=== PATIENT | male | born 1960 | race Caucasian/White ===

== ENCOUNTER 2020-08-15 12:24 | Emergency (ER) | payer MEDICAID | END 2020-08-15 14:33 | disposition left against medical advice (07) | LOC: ER 12:24 | DX: M79.671 Pain in right foot (principal); Z53.21 Procedure and treatment not carried out due to patient leaving prior to being seen by health care provider ==

== ENCOUNTER 2023-06-09 09:52 | Inpatient (IN) | payer MEDICARE, MEDICAID ==
[~2023-06-09] VITALS: Ht 175.3 cm; Wt 71.8 kg
[~2023-06-09 09:52] MED LIST: BECL40AE11 IN; CARV3.1240 PO; DAPA1TAB4 PO; MIRT-94 PO; RIVA20TA PO; SPIR25TA8 PO
[2023-06-09 12:44] VITALS: PULSE 101; RESP 21; O2SAT 92
[2023-06-09] MEDS ORDERED: FUROSEMIDE 40 MG/4 ML VIAL IV ONE (13:30)
[2023-06-09] MEDS ORDERED: ASPirin 325 MG TAB PO ONE (13:30)
[2023-06-09 13:40] LABS: Alanine Aminotransferase 29 U/L (7-40); Albumin 3.8 g/dL (3.2-4.8); Alkaline Phosphatase 87 U/L (46-116); Anion Gap 4 (5-15); Aspartate Aminotransferase 48 U/L (13-40); BUN/Creatinine Ratio 17.9 (10.0-20.0); Blood Urea Nitrogen 15 mg/dL (9-23); Calcium 9.1 mg/dL (8.5-10.1); Carbon Dioxide 31 mmol/L (20-30); Chloride 100 mmol/L (98-107); Glucose 97 mg/dL (74-106); Potassium 4.1 mmol/L (3.5-5.1); Sodium 135 mmol/L (136-145)
[2023-06-09 13:41] LABS: Bilirubin, Total 1.8 mg/dL (0.2-1.0); Total Protein 7.4 g/dL (5.7-8.2)
[2023-06-09 15:21] LABS: Urine Bacteria NONE SEEN /hpf (None Seen); Urine Blood Negative /uL (Negative); Urine Clarity Clear (Clear); Urine Color Yellow (Yellow); Urine Protein, UAD Negative (Negative); Urine Specific Gravity 1.011 (1.001-1.035); Urine WBC <1 /hpf (0 - 3)
[2023-06-09] MEDS ORDERED: DOCUSATE SOD 100 MG CAP PO PRN (15:30)
[2023-06-09] MEDS ORDERED: MORPHINE SULFATE INJ 2 MG/ml SYRG IV PRN (15:30)
[2023-06-09] MEDS ORDERED: ONDANSETRON HCL 4 MG/2 ML VIAL IV PRN (15:30)
[2023-06-09] MEDS ORDERED: NITROGLYCERIN 0.4 MG SL TAB SL PRN (15:30)
[2023-06-09] MEDS ORDERED: ACETAMINOPHEN 325 MG TAB PO PRN (15:30)
[2023-06-09] MEDS ORDERED: APIX5TAB PO (15:40)
[2023-06-09] MEDS ORDERED: LISI2.5T47 PO (15:40)
[2023-06-09] MEDS ORDERED: FURO40TA4 PO (15:40)
[2023-06-09] MEDS ORDERED: AMIO200T13 PO (15:40)
[2023-06-09] MEDS ORDERED: IPRATROPIUM BROM 0.5 MG/2.5ML INH SOL NEB PRN (15:45)
[2023-06-09] MEDS ORDERED: ALBUTEROL SULF 2.5 MG/0.5ML(0.5%) NEB SOLN NEB PRN (15:45)
[2023-06-09 16:31] VITALS: BP 116/73; PULSE 91; RESP 19; O2SAT 95
[2023-06-09 16:44] LABS: Basophils # (auto) 0 10 ^3/uL (0-0.2); Basophils % (auto) 0.7 % (0.0-2.0); Eosinophils # (auto) 0.2 10 ^3/uL (0-0.8); Eosinophils % (auto) 2.6 % (0.0-7.0); Hemoglobin 13.5 g/dL (13.5-17.5); Lymphocytes # (auto) 0.9 10 ^3/uL (0.4-5.4); Lymphocytes % (auto) 13.1 % (10.0-50.0); Mean Corpuscular Hemoglobin 36.3 pg (28.0-32.0); Mean Corpuscular Hgb Conc. 33.6 g/dL (32.0-36.0); Mean Corpuscular Volume 107.9 fL (80.0-100.0); Monocytes # (auto) 0.8 10 ^3/uL (0-1.3); Monocytes % (auto) 10.9 % (0.0-12.0); Neutrophils # (auto) 5.1 10 ^3/uL (1.6-8.6); Neutrophils % (auto) 72.7 % (37.0-80.0); Nucleated Red Blood Cells % 0.1 %; Red Blood Cells 3.71 10^6/uL (4.5-5.90); Red Cell Distribution Width 14.2 % (11.8-14.3); White Blood Cell 7.1 10^3/uL (4.4-10.8)
[2023-06-09] MEDS: MORPHINE SULFATE INJ 2 MG/ml SYRG IV PRN ×2 (17:07→22:01)
[2023-06-09] MEDS ORDERED: ENOXAPARIN SOD 40 MG/0.4 ML SYRINGE SC ONE (18:15)
[2023-06-09] MEDS: FUROSEMIDE 20 MG/2 ML VIAL IV SCH (18:35)
[2023-06-09 19:40] VITALS: PULSE 101; RESP 16; O2SAT 96
[2023-06-09 20:04] LABS: INR 1.36 (0.9-1.15); Partial Thromboplastin Time 34.4 SEC (24.5-34.5)
[2023-06-09 20:11] LABS: Amphetamine Screen, Urine Neg (NEGATIVE); Barbiturate Scree,Urine Neg (NEGATIVE); Benzodiazephine Screen, Urine Neg (NEGATIVE); Cocaine Screen, Urine Neg (NEGATIVE)
[2023-06-09 20:12] LABS: Cannabinoid Screen, Urine Neg (NEGATIVE); Opiate Scree,Urine Neg (NEGATIVE); Phencyclidine Screen, Urine Neg (NEGATIVE)
[2023-06-09] MEDS: AMIODARONE HCL 200 MG TAB PO SCH (21:58)
[2023-06-09] MEDS: APIXABAN 5 MG TAB PO SCH (21:59)
[2023-06-09] MEDS: CARVEDILOL 3.125 MG TAB PO SCH (22:00)
[2023-06-10] VITALS (9 sets, daily range): BP systolic 94–139; BP diastolic 48–75; PULSE 83–96; RESP 12–19; TEMP 96.8–98.1; O2SAT 91–96
[2023-06-10] MEDS: MORPHINE SULFATE INJ 2 MG/ml SYRG IV PRN ×3 (02:53→14:07)
[2023-06-10] MEDS: FUROSEMIDE 20 MG/2 ML VIAL IV SCH ×2 (06:15→18:37)
[2023-06-10 06:52] LABS: Alanine Aminotransferase 27 U/L (7-40); Alkaline Phosphatase 78 U/L (46-116); Anion Gap 6 (5-15); BUN/Creatinine Ratio 19.2 (10.0-20.0); Blood Urea Nitrogen 19 mg/dL (9-23); Calcium 8.9 mg/dL (8.5-10.1); Carbon Dioxide 29 mmol/L (20-30); Chloride 101 mmol/L (98-107); Glucose 82 mg/dL (74-106); Sodium 136 mmol/L (136-145)
[2023-06-10 06:53] LABS: Albumin 3.6 g/dL (3.2-4.8); Aspartate Aminotransferase 42 U/L (13-40); Bilirubin, Total 1.4 mg/dL (0.2-1.0)
[2023-06-10 07:01] LABS: Eosinophils # (auto) 0.2 10 ^3/uL (0-0.8); Hemoglobin 12.8 g/dL (13.5-17.5); Monocytes # (auto) 0.8 10 ^3/uL (0-1.3); Nucleated Red Blood Cells % 0.2 %
[2023-06-10 07:04] LABS: Basophils # (auto) 0 10 ^3/uL (0-0.2); Basophils % (auto) 0.6 % (0.0-2.0); Eosinophils % (auto) 3.5 % (0.0-7.0); Hematocrit 37.3 % (41.0-53.0); Lymphocytes # (auto) 0.9 10 ^3/uL (0.4-5.4); Lymphocytes % (auto) 12.7 % (10.0-50.0); Mean Corpuscular Hemoglobin 36.6 pg (28.0-32.0); Mean Corpuscular Hgb Conc. 34.3 g/dL (32.0-36.0); Mean Corpuscular Volume 106.6 fL (80.0-100.0); Neutrophils # (auto) 5.1 10 ^3/uL (1.6-8.6); Neutrophils % (auto) 72.2 % (37.0-80.0); Red Cell Distribution Width 14.4 % (11.8-14.3); White Blood Cell 7.1 10^3/uL (4.4-10.8)
[2023-06-10] MEDS: THIAMINE HCL 100 MG TAB PO SCH (09:48)
[2023-06-10] MEDS: MULTIPLE VITAMIN TAB PO SCH (09:48)
[2023-06-10] MEDS: FOLIC ACID 1 MG TAB PO SCH (09:48)
[2023-06-10] MEDS: AMIODARONE HCL 200 MG TAB PO SCH ×2 (09:49→21:20)
[2023-06-10] MEDS: APIXABAN 5 MG TAB PO SCH ×2 (09:55→21:20)
[2023-06-10] MEDS: ENOXAPARIN SOD 40 MG/0.4 ML SYRINGE SC SCH (09:55)
[2023-06-10] MEDS ORDERED: PANTOPRAZOLE 40 MG TAB PO SCH (10:00)
[2023-06-10] MEDS: LISINOPRIL 5 MG TAB PO SCH (10:00)
[2023-06-10] MEDS: CARVEDILOL 3.125 MG TAB PO SCH ×2 (10:00→21:22)
[2023-06-10] MEDS ORDERED: metOLazone 5 MG TAB PO ONE (12:15)
[2023-06-10 13:37] LABS: Amphetamine Screen, Urine Neg (NEGATIVE); Barbiturate Scree,Urine Neg (NEGATIVE); Benzodiazephine Screen, Urine Neg (NEGATIVE); Cocaine Screen, Urine Neg (NEGATIVE)
[2023-06-10 13:38] LABS: Cannabinoid Screen, Urine Neg (NEGATIVE); Opiate Scree,Urine Pos (NEGATIVE); Phencyclidine Screen, Urine Neg (NEGATIVE)
[2023-06-10] MEDS ORDERED: cefTRIAXone 1GM/50ML D5W 50 ML IV ONE (13:45)
[2023-06-10] MEDS ORDERED: AZITHROMYCIN 500MG/ 250ML 250 ML IV ONE (15:00)
[2023-06-10 17:16] LABS: Body Fluid Polymorphonuclear 15 % (0-25); Body Fluid Red Blood Cells 300 CUMM (0-2000); Body Fluid White Blood Cells 170 CUMM (0-200)
[2023-06-10] MEDS: HYDROcodone-ACET 5/325MG TAB PO PRN (21:21)
[2023-06-10] MEDS: guaiFENesin-DM 100/10mg/5ml SYR PO PRN (21:22)
[2023-06-11] VITALS (12 sets, daily range): BP systolic 64–104; BP diastolic 43–75; PULSE 61–90; RESP 14–22; TEMP 97.4–98.3; O2SAT 91–98
[2023-06-11] MEDS: MORPHINE SULFATE INJ 2 MG/ml SYRG IV PRN (00:21)
[2023-06-11] MEDS: FUROSEMIDE 20 MG/2 ML VIAL IV SCH (05:46)
[2023-06-11] MEDS: MULTIPLE VITAMIN TAB PO SCH (09:07)
[2023-06-11] MEDS: cefTRIAXone 1GM/50ML D5W 50 ML IV SCH (09:07)
[2023-06-11] MEDS: THIAMINE HCL 100 MG TAB PO SCH (09:08)
[2023-06-11] MEDS: APIXABAN 5 MG TAB PO SCH ×2 (09:08→20:38)
[2023-06-11] MEDS: FOLIC ACID 1 MG TAB PO SCH (09:08)
[2023-06-11] MEDS: LISINOPRIL 5 MG TAB PO SCH (09:09)
[2023-06-11] MEDS: ENOXAPARIN SOD 40 MG/0.4 ML SYRINGE SC SCH (09:09)
[2023-06-11] MEDS: AMIODARONE HCL 200 MG TAB PO SCH ×2 (09:10→22:00)
[2023-06-11] MEDS: AZITHROMYCIN 500MG/ 250ML 250 ML IV SCH (10:12)
[2023-06-11] MEDS ORDERED: ACETAMINOPHEN 325 MG TAB PO PRN ×2 (10:30→10:45)
[2023-06-11] MEDS: CARVEDILOL 3.125 MG TAB PO SCH (10:46)
[2023-06-11 11:06] LABS: Albumin, Body Fluid 1.5 g/dL (Not Estab.); Protein, Body Fluid 2.6 g/dL (.)
[2023-06-11] MEDS ORDERED: SODIUM CHLORIDE 0.9% 1,000 ML IV ONE (12:30)
[2023-06-11] MEDS ORDERED: IOHEXOL 350 MG/ML 100ML IJ ONE ×2 (12:53→15:36)
[2023-06-11] MEDS: guaiFENesin-DM 100/10mg/5ml SYR PO PRN (20:38)
[2023-06-12] VITALS (9 sets, daily range): BP systolic 91–126; BP diastolic 52–79; PULSE 51–94; RESP 12–22; TEMP 97.6–98.5; O2SAT 91–99
[2023-06-12] MEDS: guaiFENesin-DM 100/10mg/5ml SYR PO PRN ×2 (06:42→21:34)
[2023-06-12] MEDS: cefTRIAXone 1GM/50ML D5W 50 ML IV SCH (08:34)
[2023-06-12] MEDS: MULTIPLE VITAMIN TAB PO SCH (09:22)
[2023-06-12] MEDS: APIXABAN 5 MG TAB PO SCH (09:22)
[2023-06-12] MEDS: AMIODARONE HCL 200 MG TAB PO SCH ×2 (09:22→21:07)
[2023-06-12] MEDS: AZITHROMYCIN 500MG/ 250ML 250 ML IV SCH (09:22)
[2023-06-12] MEDS: THIAMINE HCL 100 MG TAB PO SCH (09:22)
[2023-06-12] MEDS: FOLIC ACID 1 MG TAB PO SCH (09:22)
[2023-06-12] MEDS ORDERED: FUROSEMIDE 100 MG/10ML VIAL IV ONE (12:45)
[2023-06-12] MEDS: HYDROcodone-ACET 5/325MG TAB PO PRN (21:33)
[2023-06-13 05:00] VITALS: BP 94/57; PULSE 72; RESP 17; TEMP 97.8; O2SAT 91
[2023-06-13 08:00] VITALS: PULSE 71; RESP 18
[2023-06-13] MEDS: THIAMINE HCL 100 MG TAB PO SCH (08:26)
[2023-06-13] MEDS: MULTIPLE VITAMIN TAB PO SCH (08:26)
[2023-06-13] MEDS: FOLIC ACID 1 MG TAB PO SCH (08:26)
[2023-06-13] MEDS: AMIODARONE HCL 200 MG TAB PO SCH ×2 (08:27→21:00)
[2023-06-13] MEDS: cefTRIAXone 1GM/50ML D5W 50 ML IV SCH (08:28)
[2023-06-13 10:00] VITALS: O2SAT 95
[2023-06-13] MEDS: AZITHROMYCIN 500MG/ 250ML 250 ML IV SCH (10:50)
[2023-06-13 19:30] VITALS: O2SAT 98
[2023-06-13 20:00] VITALS: PULSE 92; PULSE 94; RESP 12; O2SAT 98
[2023-06-13] MEDS: HYDROcodone-ACET 5/325MG TAB PO PRN (21:00)
[2023-06-13] MEDS: guaiFENesin-DM 100/10mg/5ml SYR PO PRN (21:00)
[2023-06-13 22:00] VITALS: BP 95/63; PULSE 93; RESP 18; TEMP 99.5; O2SAT 99
[2023-06-14] VITALS (15 sets, daily range): BP systolic 86–104; BP diastolic 54–72; PULSE 60–92; RESP 12–18; TEMP 97.9–98.6; O2SAT 91–98
[2023-06-14 06:51] LABS: Basophils # (auto) 0 10 ^3/uL (0-0.2); Eosinophils # (auto) 0.2 10 ^3/uL (0-0.8); Eosinophils % (auto) 3.1 % (0.0-7.0); Lymphocytes # (auto) 0.9 10 ^3/uL (0.4-5.4); Monocytes # (auto) 0.9 10 ^3/uL (0-1.3); Nucleated Red Blood Cells % 0.2 %; White Blood Cell 6.7 10^3/uL (4.4-10.8)
[2023-06-14 06:52] LABS: Basophils % (auto) 0.5 % (0.0-2.0); Hematocrit 38.5 % (41.0-53.0); Hemoglobin 13.3 g/dL (13.5-17.5); Lymphocytes % (auto) 13.9 % (10.0-50.0); Mean Corpuscular Hemoglobin 36.6 pg (28.0-32.0); Mean Corpuscular Hgb Conc. 34.5 g/dL (32.0-36.0); Monocytes % (auto) 13.3 % (0.0-12.0); Neutrophils # (auto) 4.6 10 ^3/uL (1.6-8.6); Neutrophils % (auto) 69.2 % (37.0-80.0); Red Blood Cells 3.63 10^6/uL (4.5-5.90); Red Cell Distribution Width 13.7 % (11.8-14.3)
[2023-06-14 06:55] LABS: Alanine Aminotransferase 18 U/L (7-40); Albumin 3.2 g/dL (3.2-4.8); Alkaline Phosphatase 72 U/L (46-116); Anion Gap 2 (5-15); Aspartate Aminotransferase 32 U/L (13-40); BUN/Creatinine Ratio 20.5 (10.0-20.0); Bilirubin, Total 1.3 mg/dL (0.2-1.0); Blood Urea Nitrogen 18 mg/dL (9-23); Calcium 8.7 mg/dL (8.7-10.4); Carbon Dioxide 37 mmol/L (20-30); Chloride 95 mmol/L (98-107); Glucose 84 mg/dL (74-106); Potassium 3.5 mmol/L (3.5-5.1); Sodium 134 mmol/L (136-145); Total Protein 6.2 g/dL (5.7-8.2)
[2023-06-14 07:11] LABS: INR 1.38 (0.9-1.15); Partial Thromboplastin Time 32.8 SEC (24.5-34.5); Prothrombin Time 14.2 sec (9.3-11.8)
[2023-06-14] MEDS: FOLIC ACID 1 MG TAB PO SCH (08:50)
[2023-06-14] MEDS: AMIODARONE HCL 200 MG TAB PO SCH ×2 (08:50→21:25)
[2023-06-14] MEDS: MULTIPLE VITAMIN TAB PO SCH (08:50)
[2023-06-14] MEDS: cefTRIAXone 1GM/50ML D5W 50 ML IV SCH (08:51)
[2023-06-14] MEDS: THIAMINE HCL 100 MG TAB PO SCH (10:27)
[2023-06-14] MEDS: AZITHROMYCIN 500MG/ 250ML 250 ML IV SCH (10:29)
[2023-06-14] MEDS ORDERED: LIDOCAINE 2%HCL (LOCAL ANESTH.) INJ 20ML MDV ONE (13:37)
[2023-06-14] MEDS ORDERED: IODIXANOL 320MG/ML 100ML BTL IV ONE ×2 (13:37→14:13)
[2023-06-14] MEDS ORDERED: VERAPAMIL 2.5MG/ML INJ 2ML VIAL IV ONE (13:51)
[2023-06-14] MEDS ORDERED: ANGIOMAX 250 MG VIAL IV ONE (13:51)
[2023-06-14] MEDS ORDERED: HEPARIN SODIUM (PORCINE) 5000 UNITS/ML 1ML VIAL ONE (13:51)
[2023-06-14] MEDS ORDERED: fentaNYL CITRATE 100 MCG/2 ML VL ONE (13:52)
[2023-06-14] MEDS ORDERED: MIDAZOLAM HCL 2MG/2ML 2ml VIAL (1mg/ml) ONE (13:52)
[2023-06-14] MEDS ORDERED: SODIUM CHL 0.9% 0 ML ONE (13:52)
[2023-06-15] MEDS: guaiFENesin-DM 100/10mg/5ml SYR PO PRN (01:48)
[2023-06-15 05:39] VITALS: BP 107/60; PULSE 78; RESP 17; TEMP 97.9; O2SAT 94
[2023-06-15 08:00] VITALS: PULSE 77; PULSE 88; RESP 18; O2SAT 95
[2023-06-15] MEDS: cefTRIAXone 1GM/50ML D5W 50 ML IV SCH (08:47)
[2023-06-15 09:00] VITALS: BP 114/79; PULSE 88; RESP 20; TEMP 97.9; O2SAT 90
[2023-06-15 09:48] VITALS: BP 114/79; PULSE 88; RESP 20; O2SAT 95
[2023-06-15] MEDS ORDERED: CHL25C PO (10:53)
[2023-06-15] MEDS ORDERED: AZIT500T66 PO (10:53)
[2023-06-15] MEDS ORDERED: FOLI-119 PO (10:53)
[2023-06-15] MEDS ORDERED: THIA100T13 PO (10:53)
[2023-06-15 13:00] VITALS: BP 111/71; PULSE 89; RESP 20; TEMP 98.9; O2SAT 90
[2023-06-15 13:19] VITALS: BP 119/79; PULSE 84; TEMP 36.6
== END 2023-06-15 18:00 | disposition home or self-care (01) | DRG 192 ==
LOC: ER 09:52 → TELE 15:36 → TELE-WESTW 06-10 17:19
PROVIDERS: ADMIT Nurse Practitioner Family; ATTEND Family Medicine
PROC: 0W993ZZ Drainage of Right Pleural Cavity, Percutaneous Approach (ICD-10-PCS; 2023-06-10)
PROC: 0W993ZZ Drainage of Right Pleural Cavity, Percutaneous Approach (ICD-10-PCS; 2023-06-13)
PROC: 4A023N7 Measurement of Cardiac Sampling and Pressure, Left Heart, Percutaneous Approach (ICD-10-PCS; principal; 2023-06-14)
PROC: B211YZZ Fluoroscopy of Multiple Coronary Arteries using Other Contrast (ICD-10-PCS; 2023-06-14)
PROC: B215YZZ Fluoroscopy of Left Heart using Other Contrast (ICD-10-PCS; 2023-06-14)
DX: I13.0 Hypertensive heart and chronic kidney disease with heart failure and stage 1 through stage 4 chronic kidney disease, or unspecified chronic kidney disease (principal); J96.01 Acute respiratory failure with hypoxia; J15.69 Pneumonia due to other Gram-negative bacteria; R18.8 Other ascites; J15.9 Unspecified bacterial pneumonia; J44.0 Chronic obstructive pulmonary disease with (acute) lower respiratory infection; I50.33 Acute on chronic diastolic (congestive) heart failure; I48.20 Chronic atrial fibrillation, unspecified; N18.9 Chronic kidney disease, unspecified; I08.1 Rheumatic disorders of both mitral and tricuspid valves; I25.10 Atherosclerotic heart disease of native coronary artery without angina pectoris; F17.210 Nicotine dependence, cigarettes, uncomplicated; F10.10 Alcohol abuse, uncomplicated; Z59.00 Homelessness unspecified
CPT/HCPCS: 36415; 71045; 71275; 74176; 76604; 76705; 76942; 80053; 80307; 81001; 83880; 84443; 84484; 85025; 85379; 85610; 85730; 86850; 86900; 86901; 87205; 89051; 93005; 93306; 93458; 93970; 96374; 99152; G0378; J0696; J2250; J2405; Q9967

== ENCOUNTER 2023-09-23 12:45 | Inpatient (IN) | payer MEDICARE, MEDICAID ==
[~2023-09-23] VITALS: Ht 170.2 cm; Wt 70.4 kg
[~2023-09-23 12:45] MED LIST changes: +AMIO200T13 PO; +APIX5TAB PO; +AZIT500T66 PO; -BECL40AE11 IN; +BECL40AE11 INH; +CHL25C PO; +FOLI-119 PO; +FURO40TA4 PO; +LISI2.5T47 PO; +THIA100T13 PO
[2023-09-23 13:20] VITALS: TEMP 98
[2023-09-23 13:25] LABS: Basophils # (auto) 0 10 ^3/uL (0-0.2); Basophils % (auto) 0.5 % (0.0-2.0); Eosinophils # (auto) 0.1 10 ^3/uL (0-0.8); Eosinophils % (auto) 0.6 % (0.0-7.0); Hemoglobin 14.9 g/dL (13.5-17.5); Lymphocytes # (auto) 1.2 10 ^3/uL (0.4-5.4); Lymphocytes % (auto) 12.6 % (10.0-50.0); Mean Corpuscular Hemoglobin 34.7 pg (28.0-32.0); Mean Corpuscular Hgb Conc. 32.5 g/dL (32.0-36.0); Mean Corpuscular Volume 106.7 fL (80.0-100.0); Monocytes # (auto) 1.1 10 ^3/uL (0-1.3); Monocytes % (auto) 11.8 % (0.0-12.0); Neutrophils # (auto) 7.1 10 ^3/uL (1.6-8.6); Neutrophils % (auto) 74.5 % (37.0-80.0); Nucleated Red Blood Cells % 0.1 %; Red Blood Cells 4.31 10^6/uL (4.5-5.90); Red Cell Distribution Width 15.2 % (11.8-14.3); White Blood Cell 9.5 10^3/uL (4.4-10.8)
[2023-09-23 13:43] LABS: Alanine Aminotransferase 40 U/L (7-40); Albumin 4.2 g/dL (3.2-4.8); Alkaline Phosphatase 80 U/L (46-116); Anion Gap 4 (5-15); Aspartate Aminotransferase 59 U/L (13-40); BUN/Creatinine Ratio 22.2 (10.0-20.0); Blood Urea Nitrogen 18 mg/dL (9-23); Calcium 9.4 mg/dL (8.7-10.4); Carbon Dioxide 31 mmol/L (20-30); Chloride 103 mmol/L (98-107); Glucose 95 mg/dL (74-106); Magnesium 1.9 mg/dL (1.6-2.6); Potassium 4.7 mmol/L (3.5-5.1); Sodium 138 mmol/L (136-145)
[2023-09-23 13:44] VITALS: PULSE 108; RESP 20; O2SAT 96
[2023-09-23 13:44] LABS: Bilirubin, Total 1.8 mg/dL (0.2-1.0); Total Protein 7.6 g/dL (5.7-8.2)
[2023-09-23 13:57] LABS: Base Excess -1.4 mmol/L (-2.0-2.0)
[2023-09-23 14:13] LABS: Lactic Acid w/Reflex 2.2 mmol/L (0.4-2.0)
[2023-09-23] MEDS ORDERED: ALBUTEROL SULF 2.5 MG/0.5ML(0.5%) NEB SOLN NEB PRN ×2 (14:30)
[2023-09-23] MEDS ORDERED: ACETAMINOPHEN 325 MG TAB PO PRN (15:00)
[2023-09-23] MEDS ORDERED: NITROGLYCERIN 0.4 MG SL TAB SL PRN (15:00)
[2023-09-23] MEDS ORDERED: MORPHINE SULFATE INJ 2 MG/ml SYRG IV PRN (15:00)
[2023-09-23] MEDS: FUROSEMIDE 40 MG/4 ML VIAL IV ONE (15:08)
[2023-09-23] MEDS: cefTRIAXone 1GM/50ML D5W 50 ML IV ONE (15:08)
[2023-09-23] MEDS: methylPREDNISolone SOD SUCC 125 MG/2 ML VL IV ONE (15:09)
[2023-09-23 15:15] LABS: INR 1.33 (0.9-1.15); Prothrombin Time 13.7 sec (9.3-11.8)
[2023-09-23] MEDS: AZITHROMYCIN 500MG/ 250ML 250 ML IV ONE (15:54)
[2023-09-23 16:43] VITALS: BP 135/76; PULSE 76; RESP 18; O2SAT 96
[2023-09-23] MEDS: LORazepam 2MG/ML-1ML VIAL IV ONE (17:00)
[2023-09-23] MEDS ORDERED: MIRTAZAPINE 30 MG TAB PO SCH (18:00)
[2023-09-23] MEDS ORDERED: IPRATROPIUM BROM 0.5 MG/2.5ML INH SOL NEB SCH (18:00)
[2023-09-23] MEDS ORDERED: chlordiazePOXIDE HCL 25 MG CAP PO SCH (22:00)
[2023-09-23] MEDS ORDERED: APIXABAN 5 MG TAB PO SCH (22:00)
[2023-09-23] MEDS ORDERED: AMIODARONE HCL 200 MG TAB PO SCH (22:00)
[2023-09-23] MEDS ORDERED: methylPREDNISolone SOD SUCC 40 MG/ML VL IV SCH (22:00)
[2023-09-23] MEDS ORDERED: CARVEDILOL 3.125 MG TAB PO SCH (22:00)
[2023-09-24] MEDS ORDERED: DAPAGLIFLOZIN PROPANEDIOL 10 MG PO SCH (07:00)
[2023-09-24] MEDS ORDERED: cefTRIAXone 1GM/50ML D5W 50 ML IV SCH (09:00)
[2023-09-24] MEDS ORDERED: RIVAROXABAN 20 MG TAB PO SCH (10:00)
[2023-09-24] MEDS ORDERED: FOLIC ACID 1 MG TAB PO SCH (10:00)
[2023-09-24] MEDS ORDERED: THIAMINE HCL 100 MG TAB PO SCH (10:00)
[2023-09-24] MEDS ORDERED: AZITHROMYCIN 500MG/ 250ML 250 ML IV SCH (10:00)
[2023-09-24] MEDS ORDERED: LISINOPRIL 5 MG TAB PO SCH (10:00)
[2023-09-24] MEDS ORDERED: FUROSEMIDE 20 MG/2 ML VIAL IV SCH (10:00)
== END 2023-09-23 17:56 | disposition left against medical advice (07) | DRG 720 ==
LOC: EDBD 12:45 → ER 12:45 → TELE 15:01
PROVIDERS: ADMIT Nurse Practitioner Family; ATTEND Nurse Practitioner Family
DX: A41.9 Sepsis, unspecified organism (principal); J96.01 Acute respiratory failure with hypoxia; I50.33 Acute on chronic diastolic (congestive) heart failure; J96.02 Acute respiratory failure with hypercapnia; I11.0 Hypertensive heart disease with heart failure; J18.9 Pneumonia, unspecified organism; F12.10 Cannabis abuse, uncomplicated; F10.10 Alcohol abuse, uncomplicated; F15.10 Other stimulant abuse, uncomplicated; E78.5 Hyperlipidemia, unspecified; J44.0 Chronic obstructive pulmonary disease with (acute) lower respiratory infection; F17.210 Nicotine dependence, cigarettes, uncomplicated; Z91.148 Patient's other noncompliance with medication regimen for other reason
CPT/HCPCS: 36415; 36600; 71045; 76604; 80053; 82805; 83605; 83735; 83880; 84484; 85025; 85610; 87040; 99291; G0378

== ENCOUNTER 2023-10-04 23:26 | Inpatient (IN) | payer MEDICARE, MEDICAID ==
[~2023-10-04] VITALS: Ht 170.2 cm; Wt 79.0 kg
[2023-10-05 00:37] LABS: Chloride 104 mmol/L (98-107); Sodium 139 mmol/L (136-145)
[2023-10-05 00:38] LABS: Anion Gap 5 (5-15); Calcium 8.7 mg/dL (8.7-10.4); Carbon Dioxide 30 mmol/L (20-30)
[2023-10-05 00:39] LABS: Basophils # (auto) 0 10 ^3/uL (0-0.2); Eosinophils # (auto) 0 10 ^3/uL (0-0.8); Eosinophils % (auto) 0.5 % (0.0-7.0); Lymphocytes # (auto) 0.7 10 ^3/uL (0.4-5.4); Lymphocytes % (auto) 8.4 % (10.0-50.0); Neutrophils # (auto) 6.2 10 ^3/uL (1.6-8.6)
[2023-10-05 00:40] LABS: Basophils % (auto) 0.3 % (0.0-2.0); Hematocrit 43.4 % (41.0-53.0); Hemoglobin 14.4 g/dL (13.5-17.5); Mean Corpuscular Hgb Conc. 33.2 g/dL (32.0-36.0); Mean Corpuscular Volume 105.5 fL (80.0-100.0); Monocytes % (auto) 12.1 % (0.0-12.0); Neutrophils % (auto) 78.7 % (37.0-80.0); Nucleated Red Blood Cells % 0.2 %; Red Blood Cells 4.11 10^6/uL (4.5-5.90); Red Cell Distribution Width 15.2 % (11.8-14.3); White Blood Cell 7.9 10^3/uL (4.4-10.8)
[2023-10-05 00:43] LABS: BUN/Creatinine Ratio 20.2 (10.0-20.0); Blood Urea Nitrogen 21 mg/dL (9-23); Glucose 89 mg/dL (74-106)
[2023-10-05 01:13] LABS: Blood Alcohol < 3.0 mg/dL (<10)
[2023-10-05] MEDS: FUROSEMIDE 100 MG/10ML VIAL IV ONE (02:20)
[2023-10-05] MEDS: MORPHINE SULFATE 4 MG/ML SYR/VIAL IV ONE (03:13)
[2023-10-05 04:35] VITALS: PULSE 111; RESP 13; O2SAT 98
[2023-10-05] MEDS ORDERED: MORPHINE SULFATE INJ 2 MG/ml SYRG IV PRN (06:45)
[2023-10-05] MEDS ORDERED: ALBUTEROL SULF 2.5 MG/0.5ML(0.5%) NEB SOLN NEB PRN (06:45)
[2023-10-05] MEDS ORDERED: ONDANSETRON HCL 4 MG/2 ML VIAL IV PRN (06:45)
[2023-10-05] MEDS ORDERED: NITROGLYCERIN 0.4 MG SL TAB SL PRN (06:45)
[2023-10-05 07:10] VITALS: BP 109/82; PULSE 110; RESP 14; TEMP 98.8; O2SAT 95; O2SAT 96
[2023-10-05 07:30] VITALS: PULSE 113; RESP 13; O2SAT 95
[2023-10-05 07:51] LABS: INR 1.42 (0.9-1.15); Partial Thromboplastin Time 31.3 SEC (24.5-34.5); Prothrombin Time 14.6 sec (9.3-11.8)
[2023-10-05 08:42] LABS: COVID19 ANTIGEN SOFIA FIA NEGATIVE (NEGATIVE)
[2023-10-05 08:45] LABS: Rapid Influenza A Negative (Negative)
[2023-10-05 08:48] LABS: Rapid Influenza B Positive (Negative)
[2023-10-05] MEDS ORDERED: AZITHROMYCIN 500MG/ 250ML 250 ML IV SCH (10:00)
[2023-10-05] MEDS: AMIODARONE HCL 200 MG TAB PO SCH (10:55)
[2023-10-05] MEDS: APIXABAN 5 MG TAB PO SCH (10:56)
[2023-10-05] MEDS: CARVEDILOL 3.125 MG TAB PO SCH (10:58)
[2023-10-05] MEDS: LISINOPRIL 5 MG TAB PO SCH (10:59)
[2023-10-05] MEDS: BUMETANIDE 2.5mg/10ml (0.25 mg/ml) INJ IV ONE (13:09)
[2023-10-05] MEDS: SPIRONOLACTONE 25 MG TAB PO SCH (18:00)
[2023-10-05] MEDS: FUROSEMIDE 20 MG/2 ML VIAL IV SCH (18:00)
[2023-10-05 18:52] VITALS: O2SAT 95
[2023-10-05] MEDS: DOXYCYCLINE 100MG/250ML 250 ML IV SCH (19:06)
[2023-10-05 22:03] VITALS: PULSE 98; RESP 17; O2SAT 93
[2023-10-05 23:48] VITALS: BP 75/52; PULSE 77; PULSE 81; RESP 16; TEMP 98.2; O2SAT 97
[2023-10-06] VITALS (10 sets, daily range): BP systolic 86–102; BP diastolic 55–70; PULSE 76–95; RESP 15–22; TEMP 98–98.5; O2SAT 93–98
[2023-10-06] MEDS: SOD CHL 0.45% 500 ML IV ONE (03:14)
[2023-10-06] MEDS: PHYTONADIONE (VIT K)10 MG/ML 1ML VIAL SUBCUT ONE (10:03)
[2023-10-06 10:58] LABS: Alanine Aminotransferase 22 U/L (7-40); Albumin 2.9 g/dL (3.2-4.8); Alkaline Phosphatase 50 U/L (46-116); Anion Gap 2 (5-15); Aspartate Aminotransferase 51 U/L (13-40); BUN/Creatinine Ratio 19.4 (10.0-20.0); Bilirubin, Total 1.2 mg/dL (0.2-1.0); Blood Urea Nitrogen 19 mg/dL (9-23); Carbon Dioxide 36 mmol/L (20-30); Chloride 102 mmol/L (98-107); Glucose 106 mg/dL (74-106); Potassium 3.1 mmol/L (3.5-5.1); Sodium 140 mmol/L (136-145); Total Protein 5.2 g/dL (5.7-8.2)
[2023-10-06] MEDS: LACTULOSE 20Gm/30ML SOLN PO SCH (12:25)
[2023-10-06] MEDS: SODIUM CHLORIDE 0.9% 1,000 ML IV SCH (12:30)
[2023-10-06] MEDS: POTASSIUM CHL 20MEQ/100ML 100 ML IV SCH (12:30)
[2023-10-06 12:52] LABS: Urine Bacteria NONE SEEN /hpf (None Seen); Urine Blood Negative /uL (Negative); Urine Clarity Clear (Clear); Urine Color Yellow (Yellow); Urine Protein, UAD Negative (Negative); Urine WBC <1 /hpf (0 - 3)
[2023-10-06 13:12] LABS: Amphetamine Screen, Urine Pos (NEGATIVE); Barbiturate Scree,Urine Neg (NEGATIVE); Benzodiazephine Screen, Urine Neg (NEGATIVE); Cannabinoid Screen, Urine Pos (NEGATIVE); Cocaine Screen, Urine Neg (NEGATIVE); Opiate Scree,Urine Neg (NEGATIVE); Phencyclidine Screen, Urine Neg (NEGATIVE)
[2023-10-06] MEDS: ACETAMINOPHEN 325 MG TAB PO PRN (16:40)
[2023-10-06] MEDS: DOXYCYCLINE 100MG/250ML 250 ML IV SCH (18:56)
[2023-10-07] VITALS (10 sets, daily range): BP systolic 100–109; BP diastolic 65–78; PULSE 73–91; RESP 16–24; TEMP 97.1–97.5; O2SAT 91–96
[2023-10-08] VITALS (7 sets, daily range): BP systolic 91–140; BP diastolic 67–88; PULSE 72–95; RESP 16–21; TEMP 97.4–99.5; O2SAT 91–99
[2023-10-08] MEDS: TEMAZEPAM 15 MG CAP PO PRN (21:54)
[2023-10-09] VITALS (7 sets, daily range): BP systolic 97–108; BP diastolic 61–80; PULSE 71–97; RESP 17–20; TEMP 97.1–98.7; O2SAT 91–97
[2023-10-09] MEDS: HYDROcodone-ACET 5/325MG TAB PO PRN (11:56)
[2023-10-09] MEDS: FOLIC ACID 1 MG, MAGNESIUM SULF SDV 50% 8 MEQ, MULTIPLE VITAMIN 10 ML, THIAMINE INJ 100... INJ SCH (19:31)
[2023-10-10] VITALS (7 sets, daily range): BP systolic 89–105; BP diastolic 59–74; PULSE 73–105; RESP 16–22; TEMP 97.2–98; O2SAT 94–99
[2023-10-11 05:00] VITALS: BP 100/72; PULSE 96; RESP 17; TEMP 98; O2SAT 97
[2023-10-11 08:00] VITALS: BP 98/74; PULSE 82; PULSE 83; RESP 16; TEMP 98; O2SAT 99
[2023-10-11 09:00] VITALS: BP 116/78; PULSE 68; RESP 22; TEMP 97.8; O2SAT 92
[2023-10-11 14:29] VITALS: BP 92/57; PULSE 65; RESP 20; TEMP 98.6; O2SAT 96
== END 2023-10-11 15:35 | DRG 194 ==
LOC: EDBD 23:26 → ER 23:26 → TELE 10-05 06:34 → ER 10-05 06:41 → TELE-EAST 10-05 23:10
PROVIDERS: ADMIT Nurse Practitioner; ATTEND Family Medicine
PROC: 0W993ZZ Drainage of Right Pleural Cavity, Percutaneous Approach (ICD-10-PCS; principal; 2023-10-04)
DX: I13.0 Hypertensive heart and chronic kidney disease with heart failure and stage 1 through stage 4 chronic kidney disease, or unspecified chronic kidney disease (principal); J96.01 Acute respiratory failure with hypoxia; E44.0 Moderate protein-calorie malnutrition; E72.20 Disorder of urea cycle metabolism, unspecified; I50.23 Acute on chronic systolic (congestive) heart failure; N18.9 Chronic kidney disease, unspecified; E78.5 Hyperlipidemia, unspecified; J91.8 Pleural effusion in other conditions classified elsewhere; F15.10 Other stimulant abuse, uncomplicated; I25.10 Atherosclerotic heart disease of native coronary artery without angina pectoris; F17.210 Nicotine dependence, cigarettes, uncomplicated; Z20.822 Contact with and (suspected) exposure to COVID-19; J10.1 Influenza due to other identified influenza virus with other respiratory manifestations; J44.9 Chronic obstructive pulmonary disease, unspecified; I08.1 Rheumatic disorders of both mitral and tricuspid valves; R18.8 Other ascites; F10.10 Alcohol abuse, uncomplicated; Z91.148 Patient's other noncompliance with medication regimen for other reason; Z68.27 Body mass index [BMI] 27.0-27.9, adult; Z71.41 Alcohol abuse counseling and surveillance of alcoholic
CPT/HCPCS: 36415; 71045; 74150; 76604; 80048; 80053; 80307; 80320; 81001; 82140; 83605; 83880; 84484; 85025; 85610; 85730; 87040; 87426; 87804; 93005; 93925; 93970; 97110; 97163; 97530; 99291; G0378; J3430; J3480; J3490